=== PATIENT | male | born 1995 | race Caucasian/White ===

== ENCOUNTER 2020-10-15 09:02 | Day surgery (SDC) | payer MEDICAID ==
[2020-10-12 13:14] LABS: COVID AG,FIA SOURCE NASAL SWAB
[~2020-10-15] VITALS: Ht 170.2 cm; Wt 97.7 kg
[~2020-10-15 09:02] MED LIST: SODIUM CHLORIDE 0.9% 1,000 ML IV ONE; SODIUM CHLORIDE 0.9% 1,000 ML ONE
[2020-10-15] MEDS ORDERED: PROPOFOL 1% 20 ML VIAL IVP ONE (09:03)
[2020-10-15] MEDS ORDERED: LIDOCAINE/PF 2% 5 ML VIAL IM ONE (09:03)
== END 2020-10-15 11:50 | disposition home or self-care (01) ==
LOC: SURGERY 09:02
PROVIDERS: ATTEND Student in an Organized Health Care Education/Training Program
DX: R11.2 Nausea with vomiting, unspecified (principal); K29.50 Unspecified chronic gastritis without bleeding; K21.00 Gastro-esophageal reflux disease with esophagitis, without bleeding; K44.9 Diaphragmatic hernia without obstruction or gangrene; K31.89 Other diseases of stomach and duodenum; Z98.890 Other specified postprocedural states; Z79.899 Other long term (current) drug therapy; Z88.8 Allergy status to other drugs, medicaments and biological substances; E66.01 Morbid (severe) obesity due to excess calories
CPT/HCPCS: 43239; 87426; 88305; 88312; 88313; C1769; C9803; J2704; J3490; J7030